=== PATIENT | female | born 1990 | race Two or more races ===

== ENCOUNTER 2019-10-24 08:46 | Emergency (ER) | payer SELFPAY ==
[2019-10-24] MEDS ORDERED: HYDROmorphone 0.5 MG/0.5 ML Syringe IVPUSH ONE (09:27)
[2019-10-24] MEDS ORDERED: Metoclopramide 10 MG/2 ML SDV IVPUSH ONE (09:27)
[2019-10-24] MEDS ORDERED: Sodium Chloride 0.9% 1,000 ML IV SCH (09:30)
[2019-10-24] MEDS ORDERED: Ketorolac 30 MG/ML SDV IVPUSH SCH (09:30)
--- NOTE | 2019-10-24 09:32 | EDM.PDOC ---
ED HPI GENERAL MEDICAL PROBLEM - General Chief Complaint: Flank Pain Stated Complaint: KIDNEY PAIN Time Seen by Provider: 10/24/19 09:20 Source of Information: Reports: Patient History Limitations: Reports: No Limitations - History of Present Illness INITIAL COMMENTS - FREE TEXT/NARRATIVE: 29-year-old female presents to the ED with acute onset of left flank pain that awoke her from sleep around 0300 hrs. this morning. Associated mild nausea. She was able to fall back asleep for a very short period of time but the pain is constant with intermittent colicky component. She has had a stone in the past about 2 years ago requiring lithotripsy. She believes it was on the same side. Appreciated gross hematuria this morning. No fever or chills. Mild associated nausea without vomiting. No previous abdominal surgery. She did a test at home this morning which was negative. Onset: Today, Sudden Onset Date: 10/24/19 Onset Time: 03:00 Duration: Hour(s):, Getting Worse Location: Reports: Abdomen, Back (Left flank pain) Quality: Reports: Ache, Sharp, Stabbing (Is a deep aching pain with a colicky component) Severity: Severe Improves with: Reports: None Worsens with: Reports: None (8 out of 10) Context: Denies: Activity, Exercise, Lifting, Sick Contact, Trauma, Other Associated Symptoms: Reports: Loss of Appetite, Malaise, Nausea/Vomiting (Nausea without vomiting). Denies: No Other Symptoms, Confusion, Chest Pain, Cough, cough w sputum, Diaphoresis, Fever/Chills, Headaches, Rash, Seizure, Shortness of Breath Treatments SURVEY RODMAN: Reports: Other (see below) (None.) Left Flank Pain Score (Numeric/FACES): 8 - Related Data Allergies Allergy/AdvReac Type Severity Reaction Status Date / Time No Known Allergies Allergy Verified 10/24/19 09:12 Home Meds: Home Meds Ondansetron [Zofran] 4 mg BUCCAL Q6H PRN #5 tab 10/24/19 [Rx] oxyCODONE HCl/Acetaminophen [Percocet 5-325 mg Tablet] 1 - 2 each PO Q4H PRN #15 tablet 10/24/19 [Rx] Past Medical History HEENT History: Reports: Impaired Vision Cardiovascular History: Reports: None Respiratory History: Reports: None Gastrointestinal History: Reports: None Genitourinary History: Reports: Renal Calculus 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 Musculoskeletal History: Reports: None Neurological History: Reports: None Psychiatric History: Reports: None Endocrine/Metabolic History: Reports: Obesity/BMI 30+ Hematologic History: Reports: None Immunologic History: Reports: None Oncologic (Cancer) History: Reports: None Dermatologic History: Reports: None - Infectious Disease History Infectious Disease History: Reports: None - Past Surgical History Female Surgical History: Reports: Lithotripsy/ESWL Social & Family History - Tobacco Use Smoking Status *Q: Never Smoker - Caffeine Use Caffeine Use: Reports: None - Recreational Drug Use Recreational Drug Use: No ED ROS GENERAL - Review of Systems Review Of Systems: See Below Constitutional: Reports: Fatigue, Decreased Appetite. Denies: Fever, Chills, Malaise HEENT: Reports: Glasses Respiratory: Reports: No Symptoms Cardiovascular: Reports: No Symptoms Endocrine: Reports: No Symptoms GI/Abdominal: Reports: Abdominal Pain (Left upper quadrant abdominal pain), Constipation : Reports: Frequency (Problems with constipation), Urgency ( Was not feeling of need to void), Other (Was hematuria this morning.) Musculoskeletal: Reports: Back Pain (Left flank pain) Skin: Reports: No Symptoms ( eating at 0300 hrs. this morning.) Neurological: Reports: No Symptoms Psychiatric: Reports: No Symptoms Hematologic/Lymphatic: Reports: No Symptoms ED EXAM, RENAL/ - Physical Exam Exam: See Below Exam Limited By: No Limitations General Appearance: Alert, WD/WN, Mild Distress, Other (Temperature is 36.4. Heart rate 94 and sinus respiratory to 16 with O2 sats of 98% room air BP is elevated 147 103.) Eye Exam: Bilateral Eye: Normal Inspection, PERRL Respiratory/Chest: No Respiratory Distress, Lungs Clear, Normal Breath Sounds, No Accessory Muscle Use Cardiovascular: Normal Peripheral Pulses, Regular Rate, Rhythm, No Edema, No Gallop, No Murmur, No Rub GI/Abdominal: Normal Bowel Sounds, Soft, Non-Tender, No Organomegaly, No Abnormal Bruit, No Mass, Pelvis Stable, Other (No surgical scars) Back Exam: Normal Inspection, Full Range of Motion. No: CVA Tenderness (L), CVA Tenderness (R) Extremities: Normal Inspection, Normal Range of Motion, Non-Tender, No Pedal Edema Neurological: Alert, Oriented, CN II-XII Intact, Normal Cognition Psychiatric: Normal Affect Skin Exam: Warm, Dry, Intact, Normal Color, No Rash Course - Vital Signs Last Recorded V/S: Last Vital Signs Temp 36.4 C 10/24/19 09:06 Pulse 94 10/24/19 09:06 Resp 16 10/24/19 09:06 BP 147/103 H 10/24/19 09:06 Pulse Ox 98 10/24/19 09:06 - Orders/Labs/Meds Orders: Active Orders 24 hr Category Date Time Status Ketorolac [Toradol] Med 10/24/19 09:30 Active 30 mg IVPUSH ONETIME Sodium Chloride 0.9% [Normal Saline] 1,000 ml Med 10/24/19 09:30 Active IV ASDIRECTED Medication Orders Sodium Chloride (Normal Saline) 1,000 mls @ 150 mls/hr IV ASDIRECTED AURY Last Admin: 10/24/19 09:38 Dose: 150 mls/hr Documented by: MARY Ketorolac Tromethamine (Toradol) 30 mg IVPUSH ONETIME AURY Last Admin: 10/24/19 09:40 Dose: 30 mg Documented by: MARY Labs: Laboratory Tests 10/24/19 Range/Units 09:15 Urine Color Yellow (Yellow) Urine Appearance Slt cloudy H (Clear) Urine pH 6.0 (5.0-8.0) Ur Specific Crook 1.025 (1.005-1.030) Urine Protein 2+ H (Negative) Urine Glucose (UA) Negative (Negative) Urine Ketones Trace H (Negative) Urine Occult Blood 3+ H (Negative) Urine Nitrite Negative (Negative) Urine Bilirubin Negative (Negative) Urine Urobilinogen 0.2 (0.2-1.0) Ur Leukocyte Esterase Negative (Negative) Urine RBC Too numerous to cnt H (0-5) /hpf Urine WBC 0-5 (0-5) /hpf Ur Epithelial Cells 5-10 H (0-5) /hpf Urine Bacteria Moderate H (FEW) /hpf Urine Mucus Moderate H (FEW) /hpf Meds: Medications Generic Name Dose Route Start Last Admin Trade Name Freq PRN Reason Stop Dose Admin Sodium Chloride 1,000 mls @ 150 mls/hr 10/24/19 09:30 10/24/19 09:38 Normal Saline IV 150 mls/hr ASDIRECTED AURY Administration Ketorolac Tromethamine 30 mg 10/24/19 09:30 10/24/19 09:40 Toradol IVPUSH 30 mg ONETIME AURY Administration Discontinued Medications Generic Name Dose Route Start Last Admin Trade Name Nora PRN Reason Stop Dose Admin Hydromorphone HCl 0.5 mg 10/24/19 09:27 10/24/19 09:40 Dilaudid IVPUSH 10/24/19 09:28 0.5 mg ONETIME ONE Administration Metoclopramide HCl 7.5 mg 10/24/19 09:27 10/24/19 09:38 Reglan IVPUSH 10/24/19 09:28 7.5 mg ONETIME ONE Administration - Radiology Interpretation Free Text/Narrative:: 29-year-old female presents to the ED with acute onset of left flank pain that awoke from sleep around 0300 hrs. this morning. Since then pain has been constant and is currently rated as 8 out of 10. There is a strong colicky component to the pain at times as well. She has a history of previous renal lithiasis requiring lithotripsy approximately 2 years ago. She believes it was the same side. Current pain is confined to the left flank. Very little pain in the abdomen suggesting stone in the proximal left ureter. Urine passed in the ED is revealing hematuria. Plan IV normal saline at 150 mils per hour. Given Toradol 30 mg IV with Dilaudid 0.5 mg IV and Reglan 7.5 mg IV for pain relief. She will have CT of the abdomen and pelvis per renal protocol - Re-Assessments/Exams Free Text/Narrative Re-Assessment/Exam: 10/24/19 10:26 CT of the abdomen pelvis performed per renal protocol. A small hiatal hernia is evident. Visualized portions of the lung bases are clear. The left ureter is dilated as well as dilated collecting system of the left kidney. These findings are caused by distal obstructing stone measuring 4.7 mm located at the UVJ within the distal left ureter. No right-sided ureteral calcification is identified. Nonobstructing stone is noted within the inferior left kidney measuring 6 mm. Noncontrast appearance of the liver and spleen shows no focal abnormalities. Adrenal glands show no nodules. Pancreas is normal. Aorta shows no aneurysm. No retroperitoneal adenopathy is seen. Gallbladder contains no calcified gallstones. No mesenteric abnormalities are seen. Appendix is seen which is normal in size. No pelvic mass or adenopathy noted. No free fluid or inflammatory changes appreciated impression left-sided hydronephrosis as described above caused by 4.77 mm stone located within the distal left ureter at the UVJ. 10/24/19 10:52 patient advised of the findings of CT. She will strain her urine until the stone has been noted to have passed. If it is not passed spontaneously in the next 2 weeks she will have to seek urology consultation for possible basket retrieval. Discharged home with Percocet tabs for x15 1 or 2 every 4-6 hours necessary for pain relief. Zofran 4 mg sublingually every 6 hours as needed for nausea relief. Follow-up with personal care physician as needed. Departure - Departure Time of Disposition: 10:53 Disposition: Home, Self-Care 01 Condition: Fair Clinical Impression: Renal colic on left side - Discharge Information *PRESCRIPTION DRUG MONITORING PROGRAM REVIEWED*: Not Applicable *COPY OF PRESCRIPTION DRUG MONITORING REPORT IN PATIENT SONIA: Not Applicable Prescriptions: oxyCODONE HCl/Acetaminophen [Percocet 5-325 mg Tablet] 1 - 2 each PO Q4H PRN #15 tablet PRN Reason: pain relief. Ondansetron [Zofran] 4 mg BUCCAL Q6H PRN #5 tab PRN Reason: nausea or vomiting Referrals: PCP,None [Primary Care Provider] - Forms: ED Department Discharge Additional Instructions: Evaluation in the emergency room this morning in regards to acute onset of left flank pain about 0 to 30 hours this morning. History of previous renal colic on the left side. CT scan demonstrates a 4.7 mm stone at the very lower portion of the left ureter just before it enters the urinary bladder called the ureterovesical junction. There is one nonobstructing stone within the tissue of the left kidney measuring 6 mm. No stones are identified in the right kidney. Treatment is time for this stone to pass. This may take up to a couple of weeks or but could occur today. Suggest screening the urine until stone Sepsis Event Note (ED) - Evaluation Sepsis Screening Result: No Definite Risk - Focused Exam Vital Signs: Vital Signs Temp Pulse Resp BP Pulse Ox 10/24/19 09:06 36.4 C 94 16 147/103 H 98 - My Orders Last 24 Hours: My Active Orders 10/24/19 09:30 Ketorolac [Toradol] 30 mg IVPUSH ONETIME Sodium Chloride 0.9% [Normal Saline] 1,000 ml IV ASDIRECTED - Assessment/Plan Last 24 Hours: My Active Orders 10/24/19 09:30 Ketorolac [Toradol] 30 mg IVPUSH ONETIME Sodium Chloride 0.9% [Normal Saline] 1,000 ml IV ASDIRECTED
--- NOTE | 2019-10-24 10:23 | CT ---
CT abdomen and pelvis Technique: Multiple axial sections were obtained from above the dome of the diaphragm inferiorly through the pubic symphysis. Intravenous and oral contrast not utilized. Study has been performed as a ureteral stone protocol. Findings: Left ureter is dilated as well as dilated collecting system of the left kidney. These findings are caused by a distal obstructing stone measuring 4.7 mm located at the UVJ within the distal left ureter. No right-sided ureteral calculi are seen. Nonobstructing stone is noted within the inferior left kidney measuring 6 mm. Visualized lung bases show nothing acute. Noncontrast appearance of the liver and spleen shows no focal abnormality. Adrenal glands show no nodule. Pancreas is normal. Aorta shows no aneurysm. No retroperitoneal adenopathy is seen. Gallbladder contains no calcified gallstones. No mesenteric abnormalities are seen. Appendix is seen which is normal in size. No pelvic mass or adenopathy is seen. No free fluid or inflammatory change is appreciated. Bone window settings were reviewed which appear within normal limits for the patient's age. Impression: 1. Left-sided hydronephrosis as described above caused by a 4.7 mm stone located within the distal left ureter at the UVJ. 2. Nonobstructing stone within the inferior left kidney. 3. No other acute finding appreciated on noncontrast CT study of the abdomen and pelvis. Diagnostic code #3 This report was dictated in MDT
== END 2019-10-24 11:05 | disposition home or self-care (01) ==
LOC: JD.ED 08:46
DX: N13.2 Hydronephrosis with renal and ureteral calculous obstruction (principal); E66.9 Obesity, unspecified; Z68.34 Body mass index [BMI] 34.0-34.9, adult
CPT/HCPCS: 74176; 81001; 96361; 96374; 96375; 99284; J1170; J1885; J2765; J7030; 99283

== ENCOUNTER 2022-05-05 14:45 | Emergency (ER) | payer OTHER ==
[2022-05-05] MEDS ORDERED: Sodium Chloride 0.9% 10 ML Syringe FLUSH PRN (16:13)
== END 2022-05-05 19:24 | disposition home or self-care (01) ==
LOC: JD.ED 14:45
DX: O03.9 Complete or unspecified spontaneous abortion without complication (principal); E66.9 Obesity, unspecified; Z68.38 Body mass index [BMI] 38.0-38.9, adult; Z77.22 Contact with and (suspected) exposure to environmental tobacco smoke (acute) (chronic)
CPT/HCPCS: 36415; 76817; 84702; 85025; 86900; 86901; 99284; J3490; 99283